=== PATIENT | female | born 1960 | race African-American/Black ===

== ENCOUNTER 2019-01-02 15:27 | Emergency (ER) | payer MEDICAID ==
[~2019-01-02] VITALS: Ht 172.7 cm; Wt 119.0 kg
[~2019-01-02 15:27] MED LIST: ACET1TAB14 PO; ASPI-1393 PO; ATOR40TA70 PO; CARV25TA47 PO; DICL250C PO; DIVA250T4 PO; DOCU-15 PO; FLUT1DIS3 IH; FURO20TA4 PO; GABA-531 PO; LOSA100T32 PO; METF-416 PO; MONT10TA24 PO; NITR0.4T SL; PRED1TAB PO
[2019-01-02] MEDS ORDERED: ONDANSETRON HCL 4MG/2ML INJ IV STA (15:57)
[2019-01-02] MEDS ORDERED: SODIUM CHLORIDE 0.9% 1,000 ML IV ONE (15:57)
[2019-01-02 16:16] LABS: BASOPHILS % 0.9 % (0.0-2.0); EOSINOPHILS % 1.2 % (0.0-5.0); HEMATOCRIT. 38.5 % (36.0-48.0); HEMOGLOBIN. 12.6 g/dL (12.0-16.0); LYMPHOCYTES % 23.7 % (20.0-50.0); MEAN CORPUSCULAR HEMOGLOBIN 29.9 pg (28.0-32.0); MEAN CORPUSCULAR VOLUME 91.2 fL (81.0-99.0); MEAN PLATELET VOLUME 8.8 fl (7.4-10.4); MONOCYTES % 4.7 % (2.0-8.0); NEUTROPHILS % 69.5 % (40.0-76.0); PLATELET 246 x1000/uL (130-400); RED BLOOD CELL COUNT 4.22 mill/uL (4.2-5.4); RED CELL DISTRIBUTION WIDTH 14.5 % (11.6-14.6)
[2019-01-02 16:21] LABS: CHLORIDE 109 mEq/L (98-107)
[2019-01-02 16:22] LABS: PROTHROMBIN TIME 10.6 sec (9.6-11.0)
[2019-01-02 16:30] LABS: HCG SCREEN NEGATIVE
[2019-01-02] MEDS ORDERED: MORPHINE SULFATE 4 MG/ML CPJ (NOT FOR IM USE) IV ONE ×3 (16:30→22:00)
[2019-01-02] MEDS ORDERED: PROCHLORPERAZINE MALEATE 10MG TABLET PO ONE (17:15)
[2019-01-02 22:23] LABS: CLARITY URINE CLEAR (CLEAR); COLOR URINE YELLOW (YELLOW); KETONES URINE TRACE (NEGATIVE); LEUKOCYTE ESTERASE URINE NEGATIVE (NEGATIVE); NITRITE URINE NEGATIVE (NEGATIVE); OCCULT BLOOD URINE 1+ (NEGATIVE); PH URINE 5.5 (4.5-8.0); PROTEIN URINE NEGATIVE (NEGATIVE); SPECIFIC GRAVITY URINE 1.022 (1.005-1.030)
[2019-01-03 00:46] VITALS: BP 129/66
== END 2019-01-03 00:47 | disposition home or self-care (01) ==
LOC: ER 15:52
DX: B34.9 Viral infection, unspecified (principal); K58.9 Irritable bowel syndrome, unspecified; J44.9 Chronic obstructive pulmonary disease, unspecified; F32.9 Major depressive disorder, single episode, unspecified; G40.909 Epilepsy, unspecified, not intractable, without status epilepticus; E11.22 Type 2 diabetes mellitus with diabetic chronic kidney disease; I13.0 Hypertensive heart and chronic kidney disease with heart failure and stage 1 through stage 4 chronic kidney disease, or unspecified chronic kidney disease; N18.4 Chronic kidney disease, stage 4 (severe); I50.9 Heart failure, unspecified; Z79.84 Long term (current) use of oral hypoglycemic drugs; Z88.2 Allergy status to sulfonamides; Z79.82 Long term (current) use of aspirin
CPT/HCPCS: 36415; 80053; 81003; 83605; 83690; 84703; 85025; 85610; 87086; 96361; 96374; 96375; 96376; 99283; J2270; J2405; J7030; Q0164; Z7610

== ENCOUNTER 2019-01-04 15:56 | Emergency (ER) | payer MEDICAID ==
[~2019-01-04] VITALS: Ht 167.6 cm; Wt 91.0 kg
[2019-01-04] MEDS ORDERED: ONDANSETRON HCL 4MG/2ML INJ IV STA (16:44)
[2019-01-04] MEDS ORDERED: MORPHINE SULFATE 4 MG/ML CPJ (NOT FOR IM USE) IV STA (16:44)
[2019-01-04] MEDS ORDERED: SODIUM CHLORIDE 0.9% 1,000 ML IV ONE (16:44)
[2019-01-04 17:00] LABS: BASOPHILS % 0.8 % (0.0-2.0); EOSINOPHILS % 1.9 % (0.0-5.0); HEMATOCRIT. 39.5 % (36.0-48.0); LYMPHOCYTES % 31.4 % (20.0-50.0); MEAN CORPUSCULAR HEMOGLOBIN 29.8 pg (28.0-32.0); MEAN CORPUSCULAR VOLUME 90.4 fL (81.0-99.0); MEAN PLATELET VOLUME 8.8 fl (7.4-10.4); NEUTROPHILS % 59.9 % (40.0-76.0); PLATELET 270 x1000/uL (130-400); RED BLOOD CELL COUNT 4.37 mill/uL (4.2-5.4); RED CELL DISTRIBUTION WIDTH 14.6 % (11.6-14.6)
[2019-01-04 17:06] LABS: CHLORIDE 108 mEq/L (98-107); PROTHROMBIN TIME 10.7 sec (9.6-11.0)
[2019-01-04] MEDS: KETOROLAC 30MG/ML VIAL IV STA ×2 (17:42→17:44)
[2019-01-04] MEDS ORDERED: ALBUTEROL (0.083%) 2.5MG/3ML NEB HHN STA (20:41)
[2019-01-04 20:48] LABS: CLARITY URINE CLEAR (CLEAR); COLOR URINE DARK YELLOW (YELLOW); KETONES URINE TRACE (NEGATIVE); LEUKOCYTE ESTERASE URINE TRACE (NEGATIVE); NITRITE URINE NEGATIVE (NEGATIVE); OCCULT BLOOD URINE TRACE (NEGATIVE); PH URINE 6.5 (4.5-8.0); PROTEIN URINE TRACE (NEGATIVE); SPECIFIC GRAVITY URINE 1.021 (1.005-1.030)
[2019-01-04 21:25] VITALS: BP 145/78
== END 2019-01-04 21:25 | disposition home or self-care (01) ==
LOC: ER 15:56
DX: R10.31 Right lower quadrant pain (principal); R06.2 Wheezing; R05 Cough; R11.2 Nausea with vomiting, unspecified; R19.7 Diarrhea, unspecified; J44.9 Chronic obstructive pulmonary disease, unspecified; I11.0 Hypertensive heart disease with heart failure; E11.9 Type 2 diabetes mellitus without complications; I50.9 Heart failure, unspecified; Z88.2 Allergy status to sulfonamides; Z79.899 Other long term (current) drug therapy; Z88.8 Allergy status to other drugs, medicaments and biological substances
CPT/HCPCS: 36415; 74176; 80053; 81003; 83690; 85025; 85610; 94640; 96361; 96374; 96375; 99284; J2270; J2405; J7030; J7611; Z7610; J1885

== ENCOUNTER 2022-01-05 09:01 | Inpatient (IN) | payer MEDICAID ==
[~2022-01-05] VITALS: Ht 172.7 cm; Wt 152.4 kg
[~2022-01-05 09:01] MED LIST changes: -ASPI-1393 PO; +ASPI-1497 PO; -GABA-531 PO; +GABA-532 PO; +MONT-39 PO; -MONT10TA24 PO
[2022-01-05] MEDS ORDERED: SODIUM CHLORIDE 0.9% 500 ML IV ONE (12:00)
[2022-01-05 12:25] LABS: BASOPHILS % 0.6 % (0.0-2.0); EOSINOPHILS % 0.5 % (0.0-5.0); HEMATOCRIT. 35.8 % (36.0-48.0); HEMOGLOBIN. 11.9 g/dL (12.0-16.0); LYMPHOCYTES % 21.5 % (20.0-50.0); MEAN CORPUSCULAR HEMOGLOBIN 30.8 pg (28.0-32.0); MEAN CORPUSCULAR VOLUME 92.4 fL (81.0-99.0); MEAN PLATELET VOLUME 7.8 fl (7.4-10.4); MONOCYTES % 3.7 % (2.0-8.0); NEUTROPHILS % 73.7 % (40.0-76.0); PLATELET 298 x1000/uL (130-400); RED BLOOD CELL COUNT 3.87 mill/uL (4.2-5.4); RED CELL DISTRIBUTION WIDTH 17.4 % (11.6-14.6)
[2022-01-05 12:29] LABS: CHLORIDE 102 mEq/L (98-107)
[2022-01-05] MEDS: FAMOTIDINE 20MG/2ML VIAL IV STA ×2 (12:39→13:01)
[2022-01-05] MEDS: MORPHINE SULFATE 4 MG/ML CPJ (NOT FOR IM USE) IV STA ×2 (12:40→13:01)
[2022-01-05 13:00] LABS: CLARITY URINE CLEAR (CLEAR); COLOR URINE YELLOW (YELLOW); KETONES URINE NEGATIVE (NEGATIVE); LEUKOCYTE ESTERASE URINE NEGATIVE (NEGATIVE); NITRITE URINE NEGATIVE (NEGATIVE); OCCULT BLOOD URINE 3+ (NEGATIVE); PROTEIN URINE 2+ (NEGATIVE); UROBILINOGEN URINE 0.2 E.U./dL (0.2-1.0)
[2022-01-05] MEDS ORDERED: ACETAMINOPHEN 325MG TABLET PO PRN (13:30)
[2022-01-05] MEDS: POTASSIUM CHLORIDE 20MEQ TABLET SR PO SCH (14:11)
[2022-01-05] MEDS ORDERED: ONDANSETRON HCL 4MG/2ML INJ IM ONE (14:15)
[2022-01-05] MEDS ORDERED: NALOXONE HCL 0.4MG/ML VIAL IV PRN (17:15)
[2022-01-05 20:00] VITALS: BP 128/66
[2022-01-05] MEDS: HYDROCODONE/ACETAMINOPHEN 5/325MG TABLET PO PRN (20:22)
[2022-01-06] VITALS (7 sets, daily range): BP systolic 101–128; BP diastolic 52–72
[2022-01-06] MEDS: HYDROCODONE/ACETAMINOPHEN 5/325MG TABLET PO PRN ×3 (01:21→11:41)
[2022-01-06] MEDS: ONDANSETRON HCL 4MG/2ML INJ IV PRN ×3 (01:36→12:39)
[2022-01-06 06:43] LABS: BASOPHILS % 0.4 % (0.0-2.0); EOSINOPHILS % 1.5 % (0.0-5.0); HEMATOCRIT. 34.8 % (36.0-48.0); HEMOGLOBIN. 11.4 g/dL (12.0-16.0); LYMPHOCYTES % 23.3 % (20.0-50.0); MEAN CORPUSCULAR HEMOGLOBIN 30.4 pg (28.0-32.0); MEAN CORPUSCULAR VOLUME 92.7 fL (81.0-99.0); MEAN PLATELET VOLUME 8.1 fl (7.4-10.4); MONOCYTES % 4.6 % (2.0-8.0); NEUTROPHILS % 70.2 % (40.0-76.0); PLATELET 282 x1000/uL (130-400); RED BLOOD CELL COUNT 3.76 mill/uL (4.2-5.4); RED CELL DISTRIBUTION WIDTH 17.8 % (11.6-14.6)
[2022-01-06 07:23] LABS: CHLORIDE 103 mEq/L (98-107)
[2022-01-06] MEDS: POTASSIUM CHLORIDE 20MEQ TABLET SR PO SCH (08:33)
[2022-01-06] MEDS ORDERED: KETOROLAC 15MG/ML VIAL IV PRN (16:45)
[2022-01-06 17:07] LABS: *AMPHETAMINES SCREEN URINE NEGATIVE (NEGATIVE); *BARBITURATES SCREEN URINE NEGATIVE (NEGATIVE); *BENZODIAZEPINES SCREEN URINE NEGATIVE (NEGATIVE); *COCAINE SCREEN URINE NEGATIVE (NEGATIVE); CANNABINOID URINE SCREEN PRESUMTIVE POSITIVE (NEGATIVE); METHADONE URINE SCREEN NEGATIVE (NEGATIVE); OPIATES URINE SCREEN PRESUMTIVE POSITIVE (NEGATIVE); PHENCYCLIDINE URINE SCREEN NEGATIVE (NEGATIVE)
[2022-01-06 17:19] LABS: CREATINE KINASE 23298 IU/L (26-192)
[2022-01-06] MEDS: HYDROCODONE/ACETAMINOPHEN 10/325MG TABLET PO PRN ×2 (18:01→22:36)
[2022-01-06 18:20] LABS: HEPATITIS B SURFACE ANTIGEN NEGATIVE
[2022-01-06] MEDS: DEXT 5%/0.45% NACL 1000ML 1,000 ML IV SCH (18:53)
[2022-01-06] MEDS: ENOXAPARIN 40MG/0.4ML SYR SUBCUT SCH (20:20)
[2022-01-07] VITALS: BP 111/68
[2022-01-07] MEDS: DEXT 5%/0.45% NACL 1000ML 1,000 ML IV SCH ×3 (02:30→23:33)
[2022-01-07] MEDS: HYDROCODONE/ACETAMINOPHEN 10/325MG TABLET PO PRN ×4 (03:40→21:35)
[2022-01-07 04:00] VITALS: BP 122/72
[2022-01-07 06:59] LABS: EOSINOPHILS % 1.7 % (0.0-5.0); HEMATOCRIT. 34.3 % (36.0-48.0); HEMOGLOBIN. 11.2 g/dL (12.0-16.0); MEAN CORPUSCULAR HEMOGLOBIN 30.5 pg (28.0-32.0); MEAN CORPUSCULAR VOLUME 93.5 fL (81.0-99.0); MEAN PLATELET VOLUME 7.9 fl (7.4-10.4); MONOCYTES % 5.4 % (2.0-8.0); NEUTROPHILS % 59.9 % (40.0-76.0); PLATELET 283 x1000/uL (130-400); RED BLOOD CELL COUNT 3.67 mill/uL (4.2-5.4); RED CELL DISTRIBUTION WIDTH 17.8 % (11.6-14.6)
[2022-01-07 08:00] VITALS: BP 113/53
[2022-01-07] MEDS: ENOXAPARIN 40MG/0.4ML SYR SUBCUT SCH ×2 (08:42→21:36)
[2022-01-07] MEDS: POTASSIUM CHLORIDE 20MEQ TABLET SR PO SCH (08:42)
[2022-01-07 09:43] LABS: CHLORIDE 103 mEq/L (98-107)
[2022-01-07 12:00] VITALS: BP 107/75
[2022-01-07 12:57] LABS: CREATINE KINASE 15803 IU/L (26-192)
[2022-01-07] MEDS ORDERED: LIDOCAINE HCL/PF 1% 10 MG/ML 5ML VIAL ONE (13:36)
[2022-01-07] MEDS ORDERED: IOHEXOL-300 50 ML BOTTLE IV ONE (14:31)
[2022-01-07] MEDS: ONDANSETRON HCL 4MG/2ML INJ IV PRN (15:14)
[2022-01-07 16:00] VITALS: BP 109/48
[2022-01-07 20:00] VITALS: BP 93/59
[2022-01-07] MEDS: ONDANSETRON HCL 4MG/2ML INJ IV SCH (21:37)
[2022-01-08] VITALS: BP 97/42
[2022-01-08] MEDS: ONDANSETRON HCL 4MG/2ML INJ IV SCH ×4 (03:49→20:46)
[2022-01-08 04:00] VITALS: BP 121/64
[2022-01-08] MEDS: HYDROCODONE/ACETAMINOPHEN 10/325MG TABLET PO PRN ×4 (04:01→20:47)
[2022-01-08 07:16] LABS: EOSINOPHILS % 1.2 % (0.0-5.0); HEMATOCRIT. 33.5 % (36.0-48.0); HEMOGLOBIN. 11.1 g/dL (12.0-16.0); MEAN CORPUSCULAR HEMOGLOBIN 30.6 pg (28.0-32.0); MEAN CORPUSCULAR VOLUME 92.2 fL (81.0-99.0); MEAN PLATELET VOLUME 8.1 fl (7.4-10.4); MONOCYTES % 4.6 % (2.0-8.0); NEUTROPHILS % 61.2 % (40.0-76.0); PLATELET 276 x1000/uL (130-400); RED BLOOD CELL COUNT 3.63 mill/uL (4.2-5.4); RED CELL DISTRIBUTION WIDTH 17.6 % (11.6-14.6)
[2022-01-08 07:17] LABS: CHLORIDE 103 mEq/L (98-107)
[2022-01-08] MEDS: DEXT 5%/0.45% NACL 1000ML 1,000 ML IV SCH ×3 (07:47→20:48)
[2022-01-08 07:57] LABS: CREATINE KINASE 9692 IU/L (26-192)
[2022-01-08 08:00] VITALS: BP_SYST 101; BP_SYST 102; BP_DIAS 52; BP_DIAS 65
[2022-01-08] MEDS: POTASSIUM CHLORIDE 20MEQ TABLET SR PO SCH (08:51)
[2022-01-08] MEDS: ENOXAPARIN 40MG/0.4ML SYR SUBCUT SCH ×2 (08:52→20:46)
[2022-01-08 12:00] VITALS: BP 120/54
[2022-01-08 16:00] VITALS: BP 121/76
[2022-01-08 20:00] VITALS: BP 141/77
[2022-01-09] VITALS: BP 108/54
[2022-01-09] MEDS: DEXT 5%/0.45% NACL 1000ML 1,000 ML IV SCH ×4 (02:57→22:57)
[2022-01-09 04:00] VITALS: BP 113/62
[2022-01-09] MEDS: ONDANSETRON HCL 4MG/2ML INJ IV SCH ×4 (04:00→21:06)
[2022-01-09] MEDS ORDERED: HEPARIN 100 UNITS/1 ML VIAL IV NR ×2 (05:00)
[2022-01-09 08:00] VITALS: BP 130/90
[2022-01-09] MEDS: ENOXAPARIN 40MG/0.4ML SYR SUBCUT SCH ×2 (09:02→21:04)
[2022-01-09] MEDS: HYDROCODONE/ACETAMINOPHEN 10/325MG TABLET PO PRN ×3 (09:03→18:04)
[2022-01-09] MEDS: POTASSIUM CHLORIDE 20MEQ TABLET SR PO SCH (09:04)
[2022-01-09 12:00] VITALS: BP 131/72
[2022-01-09 16:00] VITALS: BP 120/50
[2022-01-09 18:24] LABS: BASOPHILS % 0.8 % (0.0-2.0); EOSINOPHILS % 1.2 % (0.0-5.0); HEMATOCRIT. 32.7 % (36.0-48.0); HEMOGLOBIN. 10.6 g/dL (12.0-16.0); LYMPHOCYTES % 38.8 % (20.0-50.0); MEAN CORPUSCULAR HEMOGLOBIN 30.5 pg (28.0-32.0); MEAN CORPUSCULAR VOLUME 94.2 fL (81.0-99.0); MEAN PLATELET VOLUME 8.4 fl (7.4-10.4); MONOCYTES % 5.6 % (2.0-8.0); NEUTROPHILS % 53.6 % (40.0-76.0); PLATELET 256 x1000/uL (130-400); RED BLOOD CELL COUNT 3.47 mill/uL (4.2-5.4)
[2022-01-09 19:08] LABS: CHLORIDE 106 mEq/L (98-107)
[2022-01-09 19:29] LABS: CREATINE KINASE 4723 IU/L (26-192)
[2022-01-09 19:39] VITALS: BP 146/61
[2022-01-10] MEDS: ONDANSETRON HCL 4MG/2ML INJ IV SCH ×2 (04:00→09:07)
[2022-01-10] MEDS: DEXT 5%/0.45% NACL 1000ML 1,000 ML IV SCH (05:37)
[2022-01-10 08:00] VITALS: BP 122/45
[2022-01-10] MEDS: POTASSIUM CHLORIDE 20MEQ TABLET SR PO SCH (09:00)
[2022-01-10] MEDS: ENOXAPARIN 40MG/0.4ML SYR SUBCUT SCH (09:06)
[2022-01-10 10:01] LABS: BASOPHILS % 0.2 % (0.0-2.0); EOSINOPHILS % 1.1 % (0.0-5.0); HEMATOCRIT. 35.4 % (36.0-48.0); HEMOGLOBIN. 11.8 g/dL (12.0-16.0); LYMPHOCYTES % 29.7 % (20.0-50.0); MEAN CORPUSCULAR HEMOGLOBIN 31.2 pg (28.0-32.0); MEAN CORPUSCULAR VOLUME 93.5 fL (81.0-99.0); MEAN PLATELET VOLUME 7.9 fl (7.4-10.4); MONOCYTES % 4.3 % (2.0-8.0); NEUTROPHILS % 64.7 % (40.0-76.0); PLATELET 289 x1000/uL (130-400); RED BLOOD CELL COUNT 3.78 mill/uL (4.2-5.4); RED CELL DISTRIBUTION WIDTH 18.3 % (11.6-14.6)
[2022-01-10 10:13] LABS: CHLORIDE 107 mEq/L (98-107)
[2022-01-10 12:16] VITALS: BP 122/45
== END 2022-01-10 13:35 | disposition home or self-care (01) | DRG 249 ==
LOC: ER 10:18 → EDBEDREQ 12:00 → 6EST 14:11 → EDBEDREQ 14:17 → ENRESERV 14:54
PROVIDERS: ADMIT Internal Medicine; ATTEND Internal Medicine
PROC: 02HV33Z Insertion of Infusion Device into Superior Vena Cava, Percutaneous Approach (ICD-10-PCS; principal; 2022-01-07)
PROC: B548ZZA Ultrasonography of Superior Vena Cava, Guidance (ICD-10-PCS; 2022-01-07)
PROC: B518ZZA Fluoroscopy of Superior Vena Cava, Guidance (ICD-10-PCS; 2022-01-07)
DX: K52.9 Noninfective gastroenteritis and colitis, unspecified (principal); N17.9 Acute kidney failure, unspecified; M62.82 Rhabdomyolysis; E44.0 Moderate protein-calorie malnutrition; I13.0 Hypertensive heart and chronic kidney disease with heart failure and stage 1 through stage 4 chronic kidney disease, or unspecified chronic kidney disease; E11.22 Type 2 diabetes mellitus with diabetic chronic kidney disease; I50.9 Heart failure, unspecified; Z68.43 Body mass index [BMI] 50.0-59.9, adult; N18.9 Chronic kidney disease, unspecified; F12.90 Cannabis use, unspecified, uncomplicated; E87.6 Hypokalemia; E66.01 Morbid (severe) obesity due to excess calories; F14.11 Cocaine abuse, in remission; F10.11 Alcohol abuse, in remission; G40.909 Epilepsy, unspecified, not intractable, without status epilepticus; F15.90 Other stimulant use, unspecified, uncomplicated; Z20.822 Contact with and (suspected) exposure to COVID-19; G24.01 Drug induced subacute dyskinesia; J44.9 Chronic obstructive pulmonary disease, unspecified; K64.8 Other hemorrhoids; R74.01 Elevation of levels of liver transaminase levels; G89.29 Other chronic pain; Z90.49 Acquired absence of other specified parts of digestive tract; Z79.82 Long term (current) use of aspirin; Z88.2 Allergy status to sulfonamides; Z88.8 Allergy status to other drugs, medicaments and biological substances; Z79.899 Other long term (current) drug therapy; R11.2 Nausea with vomiting, unspecified
CPT/HCPCS: 36415; 36573; 74176; 76700; 76830; 76856; 80048; 80053; 80076; 80305; 81003; 82140; 82550; 83605; 84484; 85025; 86705; 86709; 86803; 87340; 87426; 93306; 93970; 99285; C1725; C1769; C1893; C9803; J1642; J1650; J2270; J2405; J3490; J7030; Q9967

== ENCOUNTER 2022-12-03 14:52 | Emergency (ER) | payer MEDICAID, OTHER ==
[~2022-12-03] VITALS: Ht 170.2 cm; Wt 113.0 kg
[~2022-12-03 14:52] MED LIST changes: -ATOR40TA70 PO; -DICL250C PO; +HYDR-4005 PO; -LOSA100T32 PO; +LOSA100T33 PO; -METF-416 PO; +ONDA4TAB11 PO; +PANT40TA51 MT; -PRED1TAB PO; +SIME80TA16 PO
[2022-12-03 15:00] VITALS: TEMP 98.5; O2SAT 100
[2022-12-03] MEDS ORDERED: LIDOCAINE 5% PATCH TOP SCH (15:45)
[2022-12-03] MEDS: LIDOCAINE 5% PATCH TOP NR ×2 (18:45→20:04)
[2022-12-03 19:45] VITALS: PULSE 62
[2022-12-03] MEDS ORDERED: HYDROCODONE/ACETAMINOPHEN 7.5/325MG TABLET PO ONE (19:45)
[2022-12-03 20:04] VITALS: BP 171/91; RESP 20
[2022-12-03 20:36] LABS: EOSINOPHILS % 1.9 % (0.0-5.0); HEMATOCRIT. 36.5 % (36.0-48.0); HEMOGLOBIN. 11.8 g/dL (12.0-16.0); LYMPHOCYTES % 30.5 % (20.0-50.0); MEAN CORPUSCULAR HEMOGLOBIN 30.8 pg (28.0-32.0); MEAN CORPUSCULAR HGB CONC 32.4 g/dL (31.0-37.0); MEAN PLATELET VOLUME 8.2 fl (7.4-10.4); NEUTROPHILS % 61.6 % (40.0-76.0); PLATELET 238 x1000/uL (130-400); RED BLOOD CELL COUNT 3.84 mill/uL (4.2-5.4); RED CELL DISTRIBUTION WIDTH 17.5 % (11.6-14.6); WHITE BLOOD COUNT 11.8 x1000/uL (4.5-11.0)
[2022-12-03 20:46] LABS: CHLORIDE 108 mEq/L (98-107); INDEX HEMOLYSI 1 (1-3); INDEX ICTERIC 1 (1-4); INDEX LIPEMIC 1 (1-3); POTASSIUM 3.6 mEq/L (3.5-5.1); SODIUM 141 mEq/L (136-145)
[2022-12-03 21:00] LABS: ALANINE AMINOTRANSFERASE 13 IU/L (13-61); ALBUMIN 3.3 g/dL (3.4-5.0); ASPARTATE AMINOTRANSFERASE 18 IU/L (15-37); BILIRUBIN TOTAL 0.3 mg/dL (0.1-1.0); CALCIUM 8.4 mg/dL (8.5-10.1); CARBON DIOXIDE 29 mEq/L (21-32); CREATININE 1.3 mg/dL (0.6-1.3); GLUCOSE 84 mg/dL (70-105); NT PRO B-TYPE NATRIURETIC PEP 282 pg/mL (5-125); PROTEIN TOTAL 7.6 g/dL (6.0-8.3); TROPONIN I HIGH SENSITIVITY 7 ng/L (<54); UREA NITROGEN BLOOD 11 mg/dL (7-21)
== END 2022-12-03 21:31 | disposition home or self-care (01) ==
LOC: ER 15:04
DX: M79.601 Pain in right arm (principal); I11.0 Hypertensive heart disease with heart failure; I50.9 Heart failure, unspecified; E11.9 Type 2 diabetes mellitus without complications; Z88.2 Allergy status to sulfonamides; Z88.8 Allergy status to other drugs, medicaments and biological substances; Z88.5 Allergy status to narcotic agent; Z88.6 Allergy status to analgesic agent; Z79.899 Other long term (current) drug therapy; Z98.890 Other specified postprocedural states; Z86.59 Personal history of other mental and behavioral disorders; W18.30XA Fall on same level, unspecified, initial encounter; Y93.89 Activity, other specified; Y92.89 Other specified places as the place of occurrence of the external cause; Y99.8 Other external cause status
CPT/HCPCS: 36415; 73030; 73060; 73080; 73090; 73100; 80053; 83880; 84484; 85025; 93005; 99285

== ENCOUNTER 2023-05-07 13:10 | Emergency (ER) | payer MEDICAID, OTHER ==
[~2023-05-07] VITALS: Ht 170.2 cm; Wt 109.0 kg
[2023-05-07 13:18] VITALS: O2SAT 100
[2023-05-07] MEDS: SODIUM CHLORIDE 0.9% 1,000 ML IV ONE (13:30)
[2023-05-07] MEDS: LEVETIRACETAM 500MG PREMIX 100 ML IV ONE (13:30)
[2023-05-07 15:40] LABS: DIFFERENTIAL COMMENT 0; EOSINOPHILS % 1.9 % (0.0-5.0); HEMATOCRIT. 35.5 % (36.0-48.0); HEMOGLOBIN. 11.6 g/dL (12.0-16.0); LYMPHOCYTES % 34.6 % (20.0-50.0); MEAN CORPUSCULAR HEMOGLOBIN 33.7 pg (28.0-32.0); MEAN CORPUSCULAR HGB CONC 32.6 g/dL (31.0-37.0); MEAN CORPUSCULAR VOLUME 103.1 fL (81.0-99.0); MEAN PLATELET VOLUME 9.3 fl (7.4-10.4); MONOCYTES % 4.6 % (2.0-8.0); NEUTROPHILS % 57.9 % (40.0-76.0); PLATELET 215 x1000/uL (130-400); RED BLOOD CELL COUNT 3.45 mill/uL (4.2-5.4); RED CELL DISTRIBUTION WIDTH 16.5 % (11.6-14.6); WHITE BLOOD COUNT 10.8 x1000/uL (4.5-11.0)
[2023-05-07 16:06] LABS: ALANINE AMINOTRANSFERASE 13 IU/L (10-49); ALBUMIN 3.9 g/dL (3.2-4.8); ASPARTATE AMINOTRANSFERASE 19 IU/L (<34); BILIRUBIN TOTAL 0.3 mg/dL (0.1-1.0); CALCIUM 8.6 mg/dL (8.7-10.4); CARBON DIOXIDE 29 mEq/L (21-32); CHLORIDE 110 mEq/L (98-107); CREATININE 1.1 mg/dL (0.6-1.0); GLUCOSE 79 mg/dL (70-105); PHOSPHORUS 2.3 mg/dL (2.5-4.9); PROTEIN TOTAL 6.8 g/dL (6.0-8.3); SODIUM 145 mEq/L (136-145); UREA NITROGEN BLOOD 8 mg/dL (9-23)
[2023-05-07 16:30] LABS: INR 0.9; PROTHROMBIN TIME 10.2 sec (9.6-11.0)
[2023-05-07] MEDS ORDERED: CYCL10TA21 MT (17:11)
[2023-05-07] MEDS: CYCLOBENZAPRINE 10MG TABLET PO ONE (17:26)
[2023-05-07 17:30] VITALS: BP 145/72; PULSE 60; RESP 16; TEMP 98.1
== END 2023-05-07 17:31 | disposition home or self-care (01) ==
LOC: ER 13:10
DX: G40.901 Epilepsy, unspecified, not intractable, with status epilepticus (principal); I11.0 Hypertensive heart disease with heart failure; I50.9 Heart failure, unspecified; J44.1 Chronic obstructive pulmonary disease with (acute) exacerbation; E11.9 Type 2 diabetes mellitus without complications; Z79.82 Long term (current) use of aspirin; Z88.2 Allergy status to sulfonamides; Z88.8 Allergy status to other drugs, medicaments and biological substances; Z88.6 Allergy status to analgesic agent; Z88.5 Allergy status to narcotic agent; Z79.899 Other long term (current) drug therapy; Z98.890 Other specified postprocedural states; Z90.49 Acquired absence of other specified parts of digestive tract
CPT/HCPCS: 80053; 83735; 84100; 85025; 85610; 36415; 96365; 96366; 99284; J1953; J7030; Z7610 ×2